=== PATIENT | female | born 2000 | race Two or more races ===

== ENCOUNTER 2023-11-23 15:14 | Emergency (ER) | payer OTHER ==
[~2023-11-23] VITALS: Ht 170.2 cm; Wt 53.1 kg
[2023-11-23] MEDS ORDERED: SYNTHROID50 MCG PO (15:39)
[2023-11-23] MEDS ORDERED: FAMOTIDINE/PF 20 MG/2 ML VIAL IV ONE (17:30)
[2023-11-23] MEDS ORDERED: ONDANSETRON HCL 2 MG/ML VIAL IV ONE (17:30)
[2023-11-23] MEDS ORDERED: 0.9 % SODIUM CHLORIDE 500 ML IV SCH (17:30)
[2023-11-23] MEDS ORDERED: DIPHENOXYLATE HCL/ATROPINE 1 UDTAB TABLET PO ONE (17:30)
[2023-11-23 18:28] LABS: HEMATOCRIT 36.3 % (36.0-45.00); HEMOGLOBIN 11.9 g/dL (12.0-15.00); MEAN CORPUSCULAR HEMOGLOBIN 24.9 pg (27.00-32.0); MEAN CORPUSCULAR HGB CONC 32.7 g/dl (32.0-36.0); PLATELET COUNT 174 K/uL (150-450); RED BLOOD COUNT 4.77 M/uL (4.00-6.00); RED CELL DISTRIBUTION WIDTH 14.9 % (11.5-14.5)
[2023-11-23 19:03] LABS: CALCIUM 9.1 mg/dL (8.5-10.1); CREATININE SERUM 0.78 mg/dL (0.55-1.02); GFR 91.52; POTASSIUM 3.64 mEq/L (3.5-5.1)
[2023-11-23 19:21] LABS: PH,URINE 5.5 (5.0-8.0); URINE APPEARANCE Clear; URINE BILIRRUBIN Negative (NEGATIVE); URINE BLOOD Negative; URINE COLOR Yellow; URINE GLUCOSE Negative (NEGATIVE); URINE LEUKOCYTE Negative; URINE NITRATE Negative; URINE PROTEIN Negative (NEGATIVE); URINE UROBILINOGEN 0.2 E.U./dl
[2023-11-23 19:25] LABS: URINE BACTERIA 497.5 uL (0.0-1933); URINE EPITHELIAL CELLS 23.4 uL (0.0-38.8); URINE RBC 5.1 uL (0.0-20.8); URINE WBC 4.7 uL (0.0-23.2)
[2023-11-23] MEDS ORDERED: PEPCID AC20 MG PO (21:27)
[2023-11-23] MEDS ORDERED: DICY20TA PO (21:27)
[2023-11-23] MEDS ORDERED: ZOFRAN8 MG PO (21:27)
[2023-11-23] MEDS ORDERED: INTESTINEX680 M1 PO (21:27)
== END 2023-11-23 21:37 | disposition home or self-care (01) ==
LOC: ER 15:15
PROVIDERS: General Practice
DX: R10.84 Generalized abdominal pain (principal); K52.89 Other specified noninfective gastroenteritis and colitis; Z88.2 Allergy status to sulfonamides; E03.9 Hypothyroidism, unspecified